=== PATIENT | female | born 1975 | race Two or more races ===

== ENCOUNTER → 2016-12-24 | Day surgery (SDC) | payer BC ==
[~2016-12-24] VITALS: Ht 167.6 cm; Wt 103.7 kg
[~2016-12-24] MED LIST: PROPOFOL 20 ML ONE; PROPOFOL 40 ML ONE
[2016-12-24 12:34] VITALS: Ht 167.6 cm; Wt 103.7 kg
[2016-12-24 12:40] LABS: ADD SCAN DIFF NO
[2016-12-24 12:43] LABS: BASOPHIL # 0.1 10^3/ul (0.0-0.1); BASOPHILS % 0.7 % (0.0-2.0); EOSINOPHILS # 0.1 10^3/ul (0.0-0.5); EOSINOPHILS % 1.3 % (0.0-7.0); HEMATOCRIT 40.7 % (37.0-47.0); HEMOGLOBIN 13.4 g/dl (12.0-16.0); LYMPHOCYTES # 2.2 10^3/ul (0.8-2.9); LYMPHOCYTES % 19.6 % (15.0-51.0); MEAN CORPUSCULAR HEMOGLOBIN 29.3 pg (29.0-33.0); MEAN CORPUSCULAR HGB CONC 32.9 g/dl (32.0-37.0); MEAN CORPUSCULAR VOLUME 88.9 fl (82.0-101.0); MEAN PLATELET VOLUME 9.1 fl (7.4-10.4); MONOCYTE # 0.8 10^3/ul (0.3-0.9); NEUTROPHIL # 7.9 10^3/ul (1.6-7.5); NEUTROPHILS % 70.9 % (39.0-77.0); PLATELET COUNT 427 10^3/UL (140-415); RED BLOOD COUNT 4.58 10^6/ul (4.20-5.40); RED CELL DISTRIBUTION WIDTH 13.5 % (11.5-14.5); WHITE BLOOD COUNT 11.1 10^3/ul (4.8-10.8)
[2016-12-24 12:49] LABS: POTASSIUM 3.9 mmol/L (3.5-5.1)
[2016-12-24 12:52] LABS: CREATININE 0.51 mg/dl (0.44-1.00); INR 0.99; PROTIME 13.1 Sec (12.2-14.2)
[2016-12-24 12:53] LABS: CALCIUM 9.4 mg/dl (8.4-10.2); PARTIAL THROMBOPLASTIN TIME 24.4 Sec (25.0-35.0)
[2016-12-24 13:11] VITALS: BP 117/62; PULSE 79; RESP 16
[2016-12-24 17:13] VITALS: BP 136/65; PULSE 78; RESP 20
--- NOTE | 2016-12-28 20:50 | GILP ---
DATE OF PROCEDURE: 12/24/2016 DATE: 12/24/2016 NAME OF PROCEDURE: Colonoscopy with biopsies, enteroscopy with biopsies. SURGEON: Alfonzo Campa MD. HISTORY AND INDICATIONS: The patient with previous history of inflammatory bowel disease complainin g of abdominal pain and alteration in bowel habits. PREMEDICATION: Monitored anesthesia care by anesthesiologist. INSTRUMENT USED: Olympus panendoscope. TECHNIQUE: After informed consent, with the patient/relatives understanding the procedure, its indic ations potential risks and complications, including but not limited to: allergic reaction, bleeding, perforation, infection, missed lesions, and after all pertinent questions were answered to the delia ent's satisfaction, the patient/relatives signed the witnessed informed consent. Following this, premedication was administered slowly IV push by under careful cardiovascular and re spiratory monitoring with pulse oximetry, automatic blood pressure and inspector wire products. Once the sedati ve effect was achieved, the patient was placed in the left lateral decubitus position, digital recta l examination was performed. The colonoscope was then introduced and advanced under visual control throughout all segments of the colon including: the rectum, sigmoid, descending colon, splenic flexu re, transverse colon, hepatic flexure, ascending colon and finally reaching the cecum which was filiberto rly identified by transillumination, finger indentation and the ileocecal valve. Careful examinatio n of the mucosa of the lower gastrointestinal tract both on insertion as well as withdrawal of the i nstrument disclosed the following findings: Rectal Examination: No evidence of perirectal disease, no masses. Colonic Mucosa: The colonic mucosa entirely unremarkable throughout. The ileocecal valve was clearl y were identified, as was the appendiceal orifice. The terminal ileum was entered and we found significant ulceration extending at least 15 to 20 cm in to the ileum consistent with Crohn disease. Multiple biopsies were obtained. The instrument was th en brought back into the colon and random biopsies were obtained in the right and left side of the c olon to rule out microscopic colitis. Moderate sized internal hemorrhoids were also noted. The instrument was then withdrawn, the patient tolerated the procedure well and was transferred out of the Endoscopy Suite awake and in good condition to continue recovery under observation. IMPRESSION: 1. Ileitis with extensive ulceration consistent with Crohn disease. Biopsies obtained. 2. Normal colonic mucosa, rule out microscopic colitis. Biopsies obtained. 3. Moderate size internal hemorrhoids. PLAN: The patient will be followed up as an outpatient. Lialda 4.6 grams will be prescribed and pa thology will be reviewed as soon as available. IBD serology will also be requested as will a CT ent erography and possibly capsule endoscopy will be considered. Dictated By: ALFONZO CAMPA MS/MISSAEL Conf#: [id number] DID#: [id number] CC: ALFONZO CAMPA;*EndCC*
--- NOTE | 2016-12-28 20:52 | GILP ---
DATE OF PROCEDURE: 12/24/2016 DATE: 12/24/2016 NAME OF PROCEDURE: Esophagogastroduodenoscopy with biopsies. SURGEON: Susan Campa MD. HISTORY AND INDICATIONS: The patient complaining of abdominal pain, dyspepsia, and nausea. PREMEDICATION: Monitored anesthesia care by anesthesiologist. INSTRUMENT USED: Olympus panendoscope. TECHNIQUE: After informed consent, with the patient/relatives understanding the procedure, its indic ations, potential risks, and complications, including but not limited to: allergic reaction, bleedin g, perforation or infection, and after all pertinent questions were answered to the patient's satisf action, the patient/relatives signed witnessed informed consent. Following this, premedication was administered slowly IV push under careful cardiovascular and respi ratory monitoring with pulse oximetry, automatic blood pressure and compliance monitor. Once the sedative effect was achieved the patient was place in the left lateral decubitus, the panen doscope was introduced and advanced under visual control. Careful examination of the upper gastrointestinal tract, both on insertion as well as withdrawal of the instrument disclosed the following findings: ESOPHAGUS: The distal esophagus shows significant erythema, edema, and superficial erosion of the m ucosa. Biopsies were obtained to rule out Brooke esophagus. STOMACH: Upon entrance to the stomach air was insufflated, the gastric anderson distended normally. T here is erythema and edema of the mucosa of a moderate degree. Biopsies were obtained to rule out H . pylori infection. PYLORUS: The pylorus appears patent and within normal limits, with no evidence of gastric outlet ob struction. DUODENUM: The duodenal mucosa was carefully examined in the duodenal bulb as well as the second por tion of the duodenum and appears unremarkable with no evidence of duodenitis, ulcer, or neoplasm. The instrument was then withdrawn, the patient tolerated the procedure well and was transfer out of the endoscopy suite awake, and in good condition to continue recovery under observation IMPRESSION: 1. Erosive esophagitis, rule out Brooke esophagus. 2. Gastritis, rule out Helicobacter pylori infection. Biopsies obtained. PLAN: The patient will be treated with PPIs. Pathology will be reviewed as soon as available. Fur ther recommendations will depend on patient's clinical course as well as review of biopsies. Dictated By: SUSAN CAMPA MS/MISSAEL Conf#: [id number] DID#: [id number] CC: SUSAN CAMPA;*EndCC*
== END | disposition home or self-care (01) ==
LOC: GIL 11:39
PROVIDERS: ATTEND Internal Medicine Gastroenterology
DX: K50.00 Crohn's disease of small intestine without complications (principal); Z87.891 Personal history of nicotine dependence; F41.9 Anxiety disorder, unspecified; F32.9 Major depressive disorder, single episode, unspecified; G47.00 Insomnia, unspecified; E11.9 Type 2 diabetes mellitus without complications; E66.9 Obesity, unspecified; Z68.36 Body mass index [BMI] 36.0-36.9, adult; K92.1 Melena; R19.7 Diarrhea, unspecified; R12 Heartburn
CPT/HCPCS: 43239; 45380; 80048; 84703; 85025; 85610; 85730; 88305; 88312; 88313; Z7610